=== PATIENT | male | born 1950 | race Caucasian/White ===

== ENCOUNTER 2016-09-30 13:30 | Emergency (ER) | payer MEDICARE, OTHER ==
--- NOTE | 2016-09-30 14:24 | ER NURSING DOCUMENTATION ---
Nurse's Notes [facility] Name:Alessio Dobbins Age:66 yrs Sex:Male :1950 Arrival Date:09/30/2016 Time:13:30 Bed3 Private MD:Ludmila Ramos Diagnosis:Gastroenteritis vs. Food Poisoning Presentation: 09/30 13:35 Acuity: RAHUL 4 st 13:56 Presenting complaint: Patient states: pt has had body ache for 3 days with vomiting x1 st and loose stools x4. Imodium fixed the loose stools this AM. pt is her because his PCP thought he needed to be seen. Transition of care: Home. Care prior to arrival: Medication(s) given: Tylenol, Imodium. 13:56 Method Of Arrival: Private Vehicle st Triage Assessment: 14:00 General: Appears in no apparent distress, Behavior is cooperative. Pain: Denies pain. st Cardiovascular: tahcy. Respiratory: No deficits noted. GI: Abdomen is non- distended Abd is soft and non tender X 4 quads. Reports diarrhea, nausea, vomiting. Musculoskeletal: Reports body aches. Historical: - Allergies: PENICILLINS; Amoxicillin; - Home Meds: 1. two BP meds - PMHx: Hypertension; - Tetanus: < 10 years. - Ebola Screening: : Patient denies exposure to infectious person. Patient denies travel to an Ebola-affected area in the 21 days before illness onset. . - Immunization history: Pneumococcal vaccine status is unknown. - Social history: Smoking status: Patient uses tobacco products, current some day smoker. Patient uses alcohol occasionally. Screenin:02 Infectious Disease Risk None. Abuse screen: Denies threats or abuse. Denies injuries st from another. pt feels safe at home. Nutritional screening: No deficits noted. Vital Signs: 14:01 BP 114 / 92; Pulse 103; Resp 18; Temp 99.3; Pulse Ox 95% on R/A; Pain 0/10; st ED Course: 13:32 Patient arrived in ED. ds 13:32 Ludmila Ramos MD is Private Physician. ds 13:35 Lianne Degroot RN is Primary Nurse. st 13:[address] 13:46 Hilton Russell MD is Attending Physician. tl1 13:56 Diet: Patient given juice. st 14:02 Valuables Remains with patient Patient has correct armband on for positive st identification. Bed in low position. 14:11 Ludmila Ramos MD is Referral Physician. tl1 Administered Medications: 13:56 CANCELLED (Physician Discretion): Aspirin 81 mg, 4 tabs, total of 324 mg - Aspirin 81 tl1 mg PO once 13:56 CANCELLED (Physician Discretion): heparin 60 units/kg IVP once; Transfer/Delay Protocol tl1 (max 4000 units) 13:56 CANCELLED (Physician Discretion): Nitroglycerin 0.4 mg Sublingual every 5 minutes; tl1 every five minutes if needed x3 13:56 CANCELLED (Physician Discretion): Plavix 300 mg PO once for patients <75 years of age - tl1 Plavix 300 mg PO once Outcome: 14:12 Discharge ordered by . tl1 14:23 Discharged to home ambulatory. st 14:23 Condition: stable 14:23 Discharge instructions given to patient, Instructed on discharge instructions, follow up and referral plans. medication usage, Prescriptions given X 1. 14:23 Patient [address] the ED. st 10/01 11:34 Discharge F/U Call: Spoke with: patient. Are you having any pain? no. Have you filled nf your prescriptions? no. Reasons not filled: felt it was not longer necessary, rapidly improving and taking food and fluids without difficulty Did your discharge instructions answer all of your questions? yes Overall Care on a scale of 1-10 with 10 being the best care, you rate our care as: the rating of 10. Further F/U necessary? None needed Signatures: Lianne Degroot RN RN st Friel, Nicole, RN RN nf Srot, Aliyah, Reg Reg Hilton Layne MD MD tl1
--- NOTE | 2016-10-02 14:24 | ER PHYSICIAN DOCUMENTATION ---
Physician Documentation [facility] Name:Alessio Dobbins Age:66 yrs Sex:Male :1950 Arrival Date:09/30/2016 Time:13:30 Bed3 Private MD:Ludmila Ramos ED PhysicianYvonneHilton Disposition: 10/02 07:38 Chart complete. tl1 Disposition: 09/30/16 14:12 Discharged to Home/Self Care. Impression: Gastroenteritis vs. Food Poisoning. - Condition is Good. - Discharge Instructions: VIRAL GASTROENTERITIS versus Food Poisoning Adult - FOOD POISONING vs Gastro-Ent (6yr - Adult). - Prescriptions for Zofran 4 mg Oral Tablet - take 1-2 tablet by ORAL route every 4-6 hours As needed; 10 tablet. - Medical Reconciliation form form. - Follow up: Ludmila Ramos MD; When: 10 - 14 days; Reason: Recheck today's complaints, Continuance of care. - Problem is new. - Symptoms are unchanged. HPI: 09/20 13:40 This 66 yrs old Male presents to ER via Private Vehicle with complaints of tl1 Nausea/Vomiting/Diarrhea. 13:40 Mild malise ffor 3 days. Vomited once yesterday. No abdominal pain. Watery diarrhea X 4 tl1 today, relieved by Immodium. He called his PCP's office and was advised to come to the ED. He really does not have any complaints at this time. No f/c/s. No M/H/H. No recent antibiotics or travel outside the country. No untreated water or ill contacts.. Historical: - Allergies: PENICILLINS; Amoxicillin; - Home Meds: 1. two BP meds - PMHx: Hypertension; - Tetanus: < 10 years. - Ebola Screening: : Patient denies exposure to infectious person. Patient denies travel to an Ebola-affected area in the 21 days before illness onset. . - Immunization history: Pneumococcal vaccine status is unknown. - Social history: Smoking status: Patient uses tobacco products, current some day smoker. Patient uses alcohol occasionally. ROS: 13:40 Abdomen/GI: Positive for diarrhea. tl1 Exam: 13:40 Head/Face: Normocephalic, atraumatic. tl1 13:40 ENT: Nares patent. No nasal discharge, no septal abnormalities noted. Tympanic tl1 membranes are normal and external auditory canals are clear. Oropharynx with no redness, swelling, or masses, exudates, or evidence of obstruction, uvula midline. Mucous membranes moist. 13:40 Constitutional: The patient appears in no acute distress, alert, awake, comfortable, non-toxic, well developed, well hydrated, well groomed. 13:40 Cardiovascular: Rate: Rhythm: Heart sounds: 13:40 Respiratory: Respirations: normal, Breath sounds: are normal. 13:40 Abdomen/GI: Palpation: abdomen is soft and non-tender. 13:40 Skin: Exam negative for acute changes. Vital Signs: 09/30 14:01 BP 114 / 92; Pulse 103; Resp 18; Temp 99.3; Pulse Ox 95% on R/A; Pain 0/10; st MDM: 13:46 Patient medically screened. tl1 14:00 Differential diagnosis: viral gastroenteritis. Data reviewed: vital signs, nurses tl1 notes, and as a result, I will discharge patient. Counseling: I had a detailed discussion with the patient and/or guardian regarding: the historical points, exam findings, and any diagnostic results supporting the discharge/admit diagnosis, the need for outpatient follow up, to return to the emergency department if symptoms worsen or persist or if there are any questions or concerns that arise at home. Special discussion: At this time, this seems like a very mild illness, which does not require any testing or intervention.. 09/30 13:47 Order name: PO Challenge; Complete Time: 14:23 tl1 Dispensed Medications: 13:56 CANCELLED (Physician Discretion): Aspirin 81 mg, 4 tabs, total of 324 mg - Aspirin 81 tl1 mg PO once 13:56 CANCELLED (Physician Discretion): heparin 60 units/kg IVP once; Transfer/Delay Protocol tl1 (max 4000 units) 13:56 CANCELLED (Physician Discretion): Nitroglycerin 0.4 mg Sublingual every 5 minutes; tl1 every five minutes if needed x3 13:56 CANCELLED (Physician Discretion): Plavix 300 mg PO once for patients <75 years of age - tl1 Plavix 300 mg PO once Signatures: Lianne Degroot RN RN st Leigh, Tom, MD MD tl1
== END 2016-09-30 14:23 | disposition home or self-care (01) ==
LOC: ER 13:30
DX: R11.2 Nausea with vomiting, unspecified (principal); R19.7 Diarrhea, unspecified
CPT/HCPCS: 99282